=== PATIENT | male | born 1945 | race Caucasian/White ===

== ENCOUNTER 2018-08-13 22:03 | Inpatient (IN) ==
--- NOTE | 2018-08-13 22:28 | ED ---
HPI General Chief Complaint: Chest Pain Stated Complaint: Rt Jaw/Shoulder Pain x2Hr Time Seen by Provider: 08/13/18 22:20 Source: patient Mode of arrival: ambulatory Limitations: no limitations History of Present Illness HPI narrative: 73-year-old male presents to the emergency department for 2 hours of retrosternal chest pain radiating into the neck and jaw with history of CAD stent placement x1 several years ago in [place] hypertension previous TIA and CVA as well as ongoing tobaccoism denies COPD/emphysema presents with 5/ 10 chest pain no sweats no nausea vomiting some shortness of breath no pleuritic pain. No reported long distance travel protracted bedrest or surgical procedure. Patient is followed to the ID. Patient does not take any medications prior to arrival to the emergency department. Patient does take daily dose aspirin 325 mg each morning. Patient is unable to identify exacerbating or alleviating factors. MD complaint: Reports chest pain Onset (ago): hour(s) (2) Time: 20:00 Duration: constant Onset: during rest Pain location: Reports substernal Severity: moderate Severity scale (1-10): 5 Quality: Reports tightness and aching Pain radiation: Reports neck and jaw/teeth Relieving factors: nothing (hasn't taken anything) Exacerbating factors: exertion Context: Reports recent travel; Denies recent illness, recent surgery, recent immobilization, trauma/injury, new medications and history of DVT/PE Associated symptoms: Reports dyspnea and cough (chronic tobacco use); Denies nausea, vomiting, diaphoresis, sense of impending doom, syncope, palpitations, fever and leg swelling Treatments prior to arrival chest pain: Reports none Related Data Home Medications Medication Instructions Recorded Confirmed Unable to Obtain Home Meds 08/13/18 08/13/18 Allergies Allergy/AdvReac Type Severity Reaction Status Date / Time steroids Allergy Tingling Uncoded 08/13/18 22:18 Review of Systems ROS: all other systems reviewed are negative PMFSH History History Provided By: Patient Medical History Medical History Heart attack (Acute) Skin cancer (Acute) Stroke (Acute) TIA (transient ischemic attack) (Acute) Surgical History Surgical History H/O hernia repair (Acute) History of coronary artery stent placement (Acute) S/P skin cancer resection (Acute) Social History Social History Substance History: No History of Abuse Second Hand Smoke Exposure: Yes Smoking Status: Current every day smoker Tobacco Type: Cigarettes How Often Do You Have a Drink Containing Alcohol: 4 or more times a week Recent Travel in [place] within the Last 8 Weeks: No Recent Out of Country Travel within the Last 8 Weeks: No Exam Narrative Exam Narrative: GENERAL: Well-nourished, well-developed patient. No acute distress no respiratory distress GCS 15 SKIN: Focused skin assessment warm/dry. HEAD: Normocephalic. EYES: No scleral icterus. No injection or drainage. NECK: Supple, trachea midline. No JVD or lymphadenopathy. CARDIOVASCULAR: Regular rate and rhythm without murmurs, gallops, or rubs. RESPIRATORY: Breath sounds equal bilaterally with end expiratory wheezing and rhonchi. No accessory muscle use. GASTROINTESTINAL: Abdomen soft, non-tender, nondistended. MUSCULOSKELETAL: No cyanosis, or edema. BACK: Nontender without obvious deformity. No CVA tenderness. Course Initial Documented Vital Signs Temperature 97.7 F 08/13/18 22:10 Pulse Rate 77 08/13/18 22:10 Respiratory Rate 18 08/13/18 22:10 Blood Pressure 159/80 H 08/13/18 22:10 Pulse Oximetry 95 08/13/18 22:10 Last Documented Vital Signs Temperature 97.4 F L 08/14/18 01:13 Pulse Rate 60 08/14/18 01:13 Respiratory Rate 20 08/14/18 01:13 Blood Pressure 109/58 L 08/14/18 01:13 Pulse Oximetry 97 08/14/18 01:13 Medical Decision Making [facility] Narrative Medical decision making narrative: 73-year-old male presents to the emergency department for 2 hours of retrosternal chest pain radiating into the neck and jaw with history of CAD stent placement x1 several years ago in [place] hypertension previous TIA and CVA as well as ongoing tobaccoism denies COPD/ emphysema presents with 5/10 chest pain no sweats no nausea vomiting some shortness of breath no pleuritic pain with posterior wheezing and rhonchi to auscultation no abdominal pain or palpable pulsatile mass and bilateral upper extremities and lower extremities palpable radial and dorsalis pedis pulses. Patient placed on monitoring and evaluation advisor with continuous pulse oximetry IV access obtained specimens collected and sent for resulting EKG performed. EKG normal sinus rhythm rate [address] elevation injury pattern or ectopy noted nonspecific mild ST depression inferiorly right bundle branch block noted. Aspirin 162 mg ordered x1 dose patient states he takes aspirin 325 mg each morning and takes another blood thinning agent but does not know the name of this medication. Patient states he is allergic to all steroids. Patient states that he has been on nebulized treatments in the past but he does not like them. Patient has very congested cough that is productive of clear sputum. Patient does not report any yellow-green or rest colored sputum or hemoptysis. No report of nausea vomiting abdominal pain or flank pain. No injury or fall. EKG sinus rhythm no acute ST elevation right bundle branch block is noted no pleuritic chest pain Troponin I is less than 0.02; CK and BNP not elevated; chest pain decreased from 5/10 in intensity to 3/10 in intensity after 2 sublingual nitroglycerin refused a third 7 nitroglycerin and subsequent pain went to 0/10 in intensity. Chest x-ray shows atelectasis versus consolidation to the left base; CBC with automated differential within normal limits; afebrile; patient with improved symptom relief after DuoNeb updraft. At 11:50 PM patient's case discussed with on-call medicine physician for observation admission for chest pain center per protocol review patient's risk factor profile of previous CAD with cardiac stent hypertension dyslipidemia and ongoing tobaccoism. Also treat patient for bronchitis with plate atelectasis versus consolidation right base no pleuritic chest pain room air O2 saturation 98% with x-ray wheezing and rhonchi suspicious for COPD with exacerbation we will give one-time dose of antibiotic. Medical Screen Exam Complete: Yes Emergency Medical Condition: Yes Differential Diagnosis Differential Diagnosis: Chest pain atypical chest pain, ACS, OR, PE, pneumonia, COPD, esophageal spasm, peptic ulcer disease, gastritis pancreatitis biliary colic, abdominal aortic aneurysm, dissection Medical Records no prior visits Lab Data Result diagrams: 08/13/18 22:28 08/13/18 22:28 Lab Results 08/13/18 08/13/18 08/13/18 Range/Units 22:28 22:28 22:28 CBC w Diff Auto diff final WBC 8.1 (4.0-11.0) th/mm3 RBC 5.32 (4.50-5.90) mil/mm3 Hgb 16.2 (13.0-17.0) gm/dL Hct 50.1 (39.0-51.0) % MCV 94.1 (80.0-100.0) fL MCH 30.5 (27.0-34.0) pg MCHC 32.4 (32.0-36.0) % RDW 13.6 (11.6-17.2) % Plt Count 322 (150-450) th/mm3 MPV 7.7 (7.0-11.0) fL Neut % (Auto) 67.0 (16.0-70.0) % Lymph % (Auto) 23.0 (9.0-44.0) % Mason % (Auto) 6.3 (0.0-8.0) % Eos % (Auto) 2.6 (0.0-4.0) % Baso % (Auto) 1.1 (0.0-2.0) % Neut # (Auto) 5.4 (1.8-7.7) th/mm3 Lymph # (Auto) 1.9 (1.0-4.8) th/mm3 Mason # (Auto) 0.5 (0.0-0.9) th/mm3 Eos # (Auto) 0.2 (0.0-0.4) th/mm3 Baso # (Auto) 0.1 (0.0-0.2) th/mm3 WBC Differential . Differential Comment . PT 10.6 (9.8-11.6) sec INR 1.0 Ratio APTT 29.1 (23.4-31.7) sec Sodium (136-145) meq/L Potassium (3.5-5.1) meq/L Chloride (98-107) meq/L Carbon Dioxide (21.0-32.0) meq/L Anion Gap (5-15) meq/L BUN (7-18) mg/dL Creatinine (0.60-1.30) mg/dL Estimated GFR (>89) mL/min Random Glucose (74-106) mg/dL Calcium (8.5-10.1) mg/dL Magnesium (1.5-2.5) mg/dL Total Bilirubin (0.2-1.0) mg/dL AST (15-37) U/L ALT (12-78) U/L Alkaline Phosphatase (45-117) U/L Total Creatine Kinase (39-308) U/L CK-MB (CK-2) (0.5-3.6) ng/mL Troponin I (0.02-0.05) ng/mL B-Natriuretic Peptide 34 (0-100) pg/mL Total Protein (6.4-8.2) g/dL Albumin (3.4-5.0) g/dL 08/13/18 Range/Units 22:28 CBC w Diff WBC (4.0-11.0) th/mm3 RBC (4.50-5.90) mil/mm3 Hgb (13.0-17.0) gm/dL Hct (39.0-51.0) % MCV (80.0-100.0) fL MCH (27.0-34.0) pg MCHC (32.0-36.0) % RDW (11.6-17.2) % Plt Count (150-450) th/mm3 MPV (7.0-11.0) fL Neut % (Auto) (16.0-70.0) % Lymph % (Auto) (9.0-44.0) % Mason % (Auto) (0.0-8.0) % Eos % (Auto) (0.0-4.0) % Baso % (Auto) (0.0-2.0) % Neut # (Auto) (1.8-7.7) th/mm3 Lymph # (Auto) (1.0-4.8) th/mm3 Mason # (Auto) (0.0-0.9) th/mm3 Eos # (Auto) (0.0-0.4) th/mm3 Baso # (Auto) (0.0-0.2) th/mm3 WBC Differential Differential Comment PT (9.8-11.6) sec INR Ratio APTT (23.4-31.7) sec Sodium 137 (136-145) meq/L Potassium 4.0 (3.5-5.1) meq/L Chloride 101 (98-107) meq/L Carbon Dioxide 33.5 H (21.0-32.0) meq/L Anion Gap 3 L (5-15) meq/L BUN 9 (7-18) mg/dL Creatinine 1.10 (0.60-1.30) mg/dL Estimated GFR 66 L (>89) mL/min Random Glucose 107 H (74-106) mg/dL Calcium 8.8 (8.5-10.1) mg/dL Magnesium 2.2 (1.5-2.5) mg/dL Total Bilirubin 0.3 (0.2-1.0) mg/dL AST 25 (15-37) U/L ALT 24 (12-78) U/L Alkaline Phosphatase 141 H (45-117) U/L Total Creatine Kinase 102 (39-308) U/L CK-MB (CK-2) 1.5 (0.5-3.6) ng/mL Troponin I Less than 0.02 L (0.02-0.05) ng/mL B-Natriuretic Peptide (0-100) pg/mL Total Protein 7.7 (6.4-8.2) g/dL Albumin 3.6 (3.4-5.0) g/dL Imaging Data Radiologist's impression: Chest X-Ray 08/13/18 22:21 CONCLUSION: Increased density at the right base likely related to consolidation or atelectasis. ECG Data EKG Prior to Arrival: No Attestation: I personally reviewed and interpreted this ECG as follows: (EKG: Normal sinus rhythm rate 75 right bundle branch block no acute ST elevation injury pattern mild ST depression inferiorly; no comparison EKGs were available for review) Prior ECG tracings: not available for review Discharge Plan Discharge Disposition Patient Disposition: ED Admit(ED Internal Use Only) Discharge Condition Condition: Stable Discharge Order Discharge Orders: ED Use Only Admit Order (Routine); Ordered 08/13/18 Ordered By: Orin Magana Discharge Details Diagnosis: Chest pain, Bronchitis Physicians Team ED Provider: Orin Magana Primary Care Provider: [facility] Attending Provider: Maggie Bender Status ED Status: Left Department Discharge Information Discharge Date/Time: 08/14/18 00:54
[2018-08-13 22:34] LABS: Baso # (Auto) 0.1 th/mm3 (0.0-0.2); Baso % (Auto) 1.1 % (0.0-2.0); Eos # (Auto) 0.2 th/mm3 (0.0-0.4); Eos % (Auto) 2.6 % (0.0-4.0); Hematocrit 50.1 % (39.0-51.0); Hemoglobin 16.2 gm/dL (13.0-17.0); Lymph # (Auto) 1.9 th/mm3 (1.0-4.8); Mean Corpuscular HGB Conc 32.4 % (32.0-36.0); Mean Corpuscular Hemoglobin 30.5 pg (27.0-34.0); Mean Corpuscular Volume 94.1 fL (80.0-100.0); Mean Platelet Volume 7.7 fL (7.0-11.0); Mono # (Auto) 0.5 th/mm3 (0.0-0.9); Mono % (Auto) 6.3 % (0.0-8.0); Neut # (Auto) 5.4 th/mm3 (1.8-7.7); Platelet Count 322 th/mm3 (150-450); Red Blood Count 5.32 mil/mm3 (4.50-5.90); Red Cell Distribution Width 13.6 % (11.6-17.2); White Blood Count 8.1 th/mm3 (4.0-11.0)
[2018-08-13] MEDS: Sod Chloride 0.9% Inj 1,000 ML IV.CONT SCH (22:40)
--- NOTE | 2018-08-13 22:43 | XR ---
EXAM DATE: 08/13/2018 10:37 PM EST AGE/SEX: 73 years / Male INDICATIONS: Patient complains of right sided chest pain radiating into right shoulder. CLINICAL DATA: This is the patient's initial encounter. Patient reports that signs and symptoms have been present for 1 day and indicates a pain score of 7/10. MEDICAL/SURGICAL HISTORY: None. None. COMPARISON: No prior exams available for comparison. FINDINGS: The heart size is normal. The lungs appear hyperinflated. There is increased density seen at the righ t base. The left lung appears grossly clear. The costophrenic angles are clear. CONCLUSION: Increased density at the right base likely related to consolidation or atelectasis. Electronically signed by: Cedric Staples MD Board Certified Radiologist 08/13/2018 10:41 PM EST
[2018-08-13 22:51] LABS: Chloride 101 meq/L (98-107); Sodium 137 meq/L (136-145)
[2018-08-13 22:54] LABS: Albumin 3.6 g/dL (3.4-5.0); Calcium 8.8 mg/dL (8.5-10.1)
[2018-08-13 22:55] LABS: Anion Gap 3 meq/L (5-15); Blood Urea Nitrogen 9 mg/dL (7-18); Carbon Dioxide 33.5 meq/L (21.0-32.0); Glucose,Random 107 mg/dL (74-106); Magnesium 2.2 mg/dL (1.5-2.5)
[2018-08-13 22:56] LABS: Activated Partial Thrombo Time 29.1 sec (23.4-31.7); Prothrombin Time 10.6 sec (9.8-11.6)
[2018-08-13] MEDS ORDERED: Pantoprazole Inj 40 MG Vial IV.PUSH ONE (22:57)
[2018-08-13 22:58] LABS: Alanine Aminotransferase 24 U/L (12-78); Aspartate Aminotransferase 25 U/L (15-37); Glomerular Filtration Rate 66 mL/min (>89)
[2018-08-13 22:59] LABS: Total Protein 7.7 g/dL (6.4-8.2)
[2018-08-13 23:00] LABS: Alkaline Phosphatase 141 U/L (45-117); Creatine Kinase 102 U/L (39-308)
[2018-08-13 23:13] LABS: Creatine Kinase MB 1.5 ng/mL (0.5-3.6)
[2018-08-14 02:18] LABS: Troponin I 0.23 ng/mL (0.02-0.05)
[2018-08-14 06:02] LABS: Troponin I 0.72 ng/mL (0.02-0.05)
[2018-08-14] MEDS ORDERED: Heparin Drip 25,000 UNIT/250 ML BAG IV.CONT PRN (06:24)
[2018-08-14] MEDS ORDERED: Heparin 10,000 UNITS/10 ML Vial (for IV use) IV.PUSH STA (06:24)
--- NOTE | 2018-08-14 06:59 | ECG ---
Date Performed: 08/13/2018 Time Performed: 22:22:00 PTAGE: 73 years EKG: Sinus rhythm RIGHT BUNDLE BRANCH BLOCK Nonspecific ST and T wave abnormalities ABNORMAL ECG NO PREVIOUS TRACING DOCTOR: Gómez Owen Interpretating Date/Time 08/14/2018 06:58:23
--- NOTE | 2018-08-14 06:59 | ECG ---
Date Performed: 08/14/2018 Time Performed: 01:28:02 PTAGE: 73 years EKG: Baseline artifact present SINUS BRADYCARDIA RIGHT BUNDLE BRANCH BLOCK Nonspecific ST and T wave abnormalities ABNORMAL ECG No significant change from prior electrocardiogram. PREVIOUS TRACING : 08/13/2018 22.22 DOCTOR: Gómez Owen Interpretating Date/Time 08/14/2018 06:57:50
--- NOTE | 2018-08-14 07:03 | ECG ---
Date Performed: 08/14/2018 Time Performed: 04:21:00 PTAGE: 73 years EKG: Sinus rhythm RIGHT BUNDLE BRANCH BLOCK ABNORMAL ECG Compared to prior electrocardiogram, ST T-wave changes have r esolved. PREVIOUS TRACING : 08/14/2018 01.28 DOCTOR: Gómez Owen Interpretating Date/Time 08/14/2018 07:01:58
[2018-08-14 07:36] LABS: Activated Partial Thrombo Time 29.1 sec (23.4-31.7); INR 1.1 Ratio; Prothrombin Time 10.7 sec (9.8-11.6)
[2018-08-14] MEDS ORDERED: LORazepam 1 MG Tablet PO PRN (07:47)
[2018-08-14] MEDS ORDERED: Haloperidol Inj 5 MG/ML Ampul IV.PUSH PRN (07:47)
--- NOTE | 2018-08-14 07:49 | P.HPIM ---
History of Present Illness Primary Care Physician: [facility] Chief Complaint: Right arm and jaw pain History of Present Illness: 73-year-old male with known history of hypertension, history of myocardial infarction, coronary artery disease, TIA who presented to the hospital for acute onset of right jaw and right arm pain. Patient states that he was in his normal state of health while he was at a bar last night having a beer when he got a sudden onset of pain in his jaw and right arm at approximately 8 PM last night. Patient states that it hurt real bad but he could not quantify the pain. The pain was persistent until he was brought to the hospital. His son brought him to the hospital for evaluation. Patient was given aspirin, nitroglycerin, Protonix in emergency department with resolution of his pain. Patient denied any nausea, vomiting, shortness of breath, dyspnea, chest pain. Patient had workup done in emergency department and was made to the hospital for evaluation chest pain. During evaluation patient had acute troponin elevation without any ST elevations. Cardiology has been consulted. At the time of evaluating patient this morning he is asymptomatic. Patient does have history of coronary disease and has undergone cardiac catheterization with 1 stent placement. Review of Systems Review of Systems: all other systems reviewed are negative Cardiovascular: Reports radiating jaw, neck or arm pain PMFSH Medical History Medical History Alcohol use (Acute) Heart attack (Acute) Skin cancer (Acute) Stroke (Acute) TIA (transient ischemic attack) (Acute) Tobacco use (Acute) Surgical History Surgical History H/O hernia repair (Acute) History of coronary artery stent placement (Acute) S/P skin cancer resection (Acute) Family History Family History Mother Family history of heart disease Social History Social History Substance History: No History of Abuse Second Hand Smoke Exposure: Yes Smoking Status: Current every day smoker Tobacco Type: Cigarettes Packs Per Day: 1 Cigarettes Per Day: 20.0 Years Smoked: 54 Pack-Years: 54.00 How Often Do You Have a Drink Containing Alcohol: 4 or more times a week Recent Travel in [facility] within the Last 8 Weeks: No Recent Out of Country Travel within the Last 8 Weeks: No Immunization History Tetanus Immunization: >5 Years Medications and Allergies Allergies Allergy/AdvReac Type Severity Reaction Status Date / Time steroids Allergy Tingling Uncoded 08/13/18 22:18 Home Medications Medication Instructions Recorded Confirmed Type Unable to Obtain Home Meds 08/13/18 08/13/18 History Active Medications: Active Medications Aspirin (Aspirin) 325 mg PO DAILY [facility] Heparin Sodium (Porcine) (Heparin Inj) 2,500 units IV.PUSH UNSCH PRN PRN Reason: aPTT 25-39 Heparin Sodium (Porcine) (Heparin Inj) 5,000 units IV.PUSH UNSCH PRN PRN Reason: aPTT < 25 Sodium Chloride (Ns Inj) 1,000 mls @ 84 mls/hr IV.CONT .[id number] [facility] Last Infusion: 08/14/18 00:54 Dose: 84 mls/hr Heparin Sodium/Dextrose (Heparin/D5w 25,000 U/250 Ml) 25,000 unit in 250 mls @ 10 mls/hr IV.CONT TITRATE PRN; Protocol PRN Reason: Per Protocol Nitroglycerin (Nitrostat Sl) 0.4 mg SL Q5M PRN PRN Reason: CHEST PAIN Sodium Chloride (Ns Flush) 2 ml IV.FLUSH UNSCH PRN PRN Reason: FLUSH AFTER USING IV ACCESS Sodium Chloride (Ns Flush) 2 ml IV.FLUSH BID [facility] Physical Exam Vital signs: Vital Signs 08/13/18 22:10 08/13/18 22:43 08/13/18 23:17 Temperature 97.7 F Pulse Rate 77 75 71 Respiratory Rate 18 18 22 Blood Pressure 159/80 H 144/83 H Pulse Oximetry 95 98 08/14/18 00:35 08/14/18 01:13 Temperature 97.4 F L Pulse Rate 72 60 Respiratory Rate 18 20 Blood Pressure 152/74 H 109/58 L Pulse Oximetry 95 97 Intake & Output 08/13/18 08/14/18 08/14/18 18:59 06:59 18:59 Intake Total 278 / 278 Balance 278 / 278 Weight 81.7 kg Intake: IV 278 / 278 NS Inj 1,000 ML @ 84 mls/hr IV. 178 / 178 CONT .[id number] [facility] Rx#: [id number] Rocephin Inj 1,000 MG In NS Inj 100 / 100 100 ML @ 200 mls/hr IV.SIG ONCE ONE Rx#:[id number] Oral 0 / 0 Other 0 / 0 Other: Weight On Admission 81.7 kg Narrative: GENERAL: Well-developed, well-nourished, in no acute distress. alert and orientated HEENT: Head is normocephalic without any lesions or masses noted. Facial features are symmetric. Eyes: Pupils equal round reactive to light. Extraocular muscles are intact. Conjunctivae were clear. Oropharyngeal: Pharynx without any erythema edema. Tongue is midline without deviation. Buccal mucosa is moist without any masses or lesions. Patient does have a lesion noted on left ear NECK: Supple without any masses. Trachea midline no deviation. No JVD, no bruits are appreciated CARDIAC: Regular rhythm, regular rate. S1/S2 are heard. No murmurs gallops or rubs. LUNGS: Clear to auscultation bilaterally. No wheeze, rhonchi or rales. No use of accessory muscles on inspiration or expiration. ABDOMEN: Soft, nontender. Nondistended. Bowel sounds heard in all 4 quadrants. No organomegaly or masses. Negative rebound, negative guarding EXTREMITIES: No edema, pulses are equal bilaterally. No cyanosis or clubbing NEUROLOGY: Mood and affect appear appropriate. Cranial nerves II through XII grossly intact. Muscle strength 5/5 in upper and lower extremities bilaterally. Deep tendon reflexes are 2+ in upper and lower extremities bilaterally. Results Labs CBC & Chem 7: 08/13/18 22:28 08/13/18 22:28 Imaging Impressions Chest X-Ray 08/13/18 22:21 CONCLUSION: Increased density at the right base likely related to consolidation or atelectasis. Caprini VTE Risk Assessment Caprini VTE Risk Assessment: Moderate/High Risk (score >= 2) Caprini Risk Assessment Model: Point Value = 1 Point Value = 2 Point Value = 3 Point Value = 5 Age 41-60 Minor surgery BMI > 25 kg/m2 Swollen legs Varicose veins or History of unexplained or recurrent spontaneous Oral contraceptives or hormone replacement Sepsis (< 1 month) Serious lung disease, including pneumonia (< 1 month) Abnormal pulmonary function Acute myocardial infarction Congestive heart failure (< 1 month) History of inflammatory bowel disease Medical patient at bed rest Age 61-74 Arthroscopic surgery Major open surgery (> 45 min) Laparoscopic surgery (> 45 min) Malignancy Confined to bed (> 72 hours) Immobilizing plaster cast Central venous access Age >= 75 History of VTE Family history of VTE Factor V Leiden Prothrombin [id number] Lupus anticoagulant Anticardiolipin antibodies Elevated serum homocysteine Heparin-induced thrombocytopenia Other congenital or acquired thrombophilia Stroke (< 1 month) Elective arthroplasty Hip, pelvis, or leg fracture Acute spinal cord injury (< 1 month) Prophylaxis Regimen: Total Risk Factor Score Risk Level Prophylaxis Regimen 0-1 Low Early ambulation 2 Moderate Order ONE of the following: *Sequential Compression Device (SCD) *Heparin 5000 units SQ BID 3-4 Higher Order ONE of the following medications: *Heparin 5000 units SQ TID *Enoxaparin/Lovenox 40 mg SQ daily (WT < 150 kg, CrCl > 30 mL/min) *Enoxaparin/Lovenox 30 mg SQ daily (WT < 150 kg, CrCl > 10-29 mL/min) *Enoxaparin/Lovenox 30 mg SQ BID (WT < 150 kg, CrCl > 30 mL/min) AND/OR *Sequential Compression Device (SCD) 5 or more Highest Order ONE of the following medications: *Heparin 5000 units SQ TID (Preferred with Epidurals) *Enoxaparin/Lovenox 40 mg SQ daily (WT < 150 kg, CrCl > 30 mL/min) *Enoxaparin/Lovenox 30 mg SQ daily (WT < 150 kg, CrCl > 10-29 mL/min) *Enoxaparin/Lovenox 30 mg SQ BID (WT < 150 kg, CrCl > 30 mL/min) AND *Sequential Compression Device (SCD) Assessment and Plan Plan Non-ST elevated myocardial infarction Patient with increased risk factors include age, male, hypertension, coronary artery disease, history of myocardial infarction, tobacco use, family history of heart disease Serial cardiac enzymes were performed with continued elevation of troponin from 0.02>0.72 Serial EKGs were performed which shows right bundle branch block. Nonspecific ST-T changes which have improved Cardiology consulted for further recommendations Patient started on heparin IV for cardioprotection Continue aspirin Start Nitropaste Patient currently on metoprolol, however blood pressure and heart rate too low to initiate at this time Obtain lipid panel Start atorvastatin Hypertension, coronary artery disease Patient states that he is on metoprolol for blood pressure control, unknown dosage Daily alcohol use Start CIWA protocol Start thiamine and folic acid Monitor for alcohol withdrawal DVT prevention Heparin Discussed Condition With: Patient, nursing staff, Dr. Montes H&P: Quality VTE Deep Vein Thrombosis/Pulmonary Embolism Present on Admission: No
[2018-08-14 08:33] LABS: Creatine Kinase 132 U/L (39-308)
[2018-08-14 08:45] LABS: Creatine Kinase MB 13.4 ng/mL (0.5-3.6)
[2018-08-14 08:56] LABS: Troponin I 1.42 ng/mL (0.02-0.05)
[2018-08-14] MEDS: Folic Acid 1 MG Tablet PO SCH (09:17)
[2018-08-14] MEDS: Aspirin 325 MG Tablet PO SCH (09:17)
[2018-08-14 10:50] LABS: Cholesterol 140 mg/dL (120-200); Triglycerides 65 mg/dL (42-150)
[2018-08-14 10:53] LABS: Chol/HDL Ratio 3.01 Ratio; HDL Cholesterol 46.5 mg/dL (40.0-60.0); LDL Cholesterol,Calculated 81 mg/dL (0-99)
[2018-08-14] MEDS: Sod Chloride 0.9% Inj 1,000 ML IV.CONT SCH (11:25)
[2018-08-14] MEDS ORDERED: Heparin 10,000 UNITS/10 ML Vial (for IV use) IV.PUSH PRN ×2 (12:25→12:31)
--- NOTE | 2018-08-14 12:51 | ECG ---
Date Performed: 08/14/2018 Time Performed: 10:46:03 PTAGE: 73 years EKG: SINUS BRADYCARDIA RIGHT BUNDLE BRANCH BLOCK ABNORMAL ECG No significant change from prior e lectrocardiogram. PREVIOUS TRACING : 08/14/2018 04.21 DOCTOR: Gómez Owen Interpretating Date/Time 08/14/2018 12:51:35
[2018-08-14] MEDS ORDERED: Heparin/NS PF Inj 1,000 ML ONE (13:30)
[2018-08-14] MEDS ORDERED: fentaNYL Citrate Inj 100 MCG/2 ML Ampul ONE (13:33)
[2018-08-14] MEDS ORDERED: Heparin 10,000 UNITS/10 ML Vial (for IV use) ONE (13:53)
--- NOTE | 2018-08-14 14:04 | MB ---
cc: Job Carolina MD DATE: 08/14/2018 HISTORY OF PRESENT ILLNESS: This patient is a 73-year-old gentleman with a history of myocardial infarction, coronary artery disease, status post PCI, who presents with chest pain lasting for approximately 2 hours, currently pain-free, elevated troponin. He was initially at [place] and was transferred to [facility] for left heart catheterization. Otherwise, denies any fever, chills, cough, GI or bleeding, PND, orthopnea. PAST MEDICAL HISTORY: Alcohol use, skin cancer, CVA x2, TIA, hernia repair, skin cancer resection. ALLERGIES: STEROIDS. SOCIAL HISTORY: Smokes every day. Drinks alcohol 4 or more times a week. MEDICATIONS IN THE HOSPITAL: 1. Aspirin 325 daily. 2. Lipitor 20 mg daily. 3. Folic acid 1 mg daily. 4. Heparin drip. 5. Half-inch nitro paste every 6 hours. 6. Thiamine 100 mg daily. PHYSICAL EXAMINATION: VITAL SIGNS: Blood pressure 138/75, pulse 63, respiratory rate 20, pulse 57, temperature 98.4, heart rate ranging between 57 and 77. GENERAL: He is alert and oriented x3, in no acute distress. NECK: Supple. No JVD. No bruit. CARDIOVASCULAR: S1, S2. No murmurs, rubs or gallops. LUNGS: Clear to auscultation bilaterally. ABDOMEN: Soft, nontender, nondistended with positive bowel sounds. EXTREMITIES: No lower extremity edema. LABORATORY DATA: EKG shows normal sinus rhythm at 73 beats per minute, right bundle-branch block, nonspecific ST-T wave changes. Chest x-ray: Increased density at the right base, likely related to consolidation or atelectasis. EKG from this morning, normal sinus rhythm at 58 beats per minute, nonspecific ST-T wave changes. LABORATORY DATA: White count 8.1, hemoglobin 16.8, hematocrit 50.1, platelet count 322,000. INR is 1.1. Sodium 137, potassium 4, chloride 100, bicarbonate 33.5, BUN 9, creatinine 1.1. Troponins less than 0.02, followed by 0.23 0.72, 1.42, and 3.81. LFTs normal. LDL 81. DIAGNOSES: 1. Ahq-AM-eimfougoc myocardial infarction. 2. Coronary artery disease. 3. Tobacco abuse. 4. History of cerebrovascular accident. DISCUSSION: I have advised transfer to [facility] for urgent left heart catheterization. The patient agrees to left heart catheterization. I have strongly advised him to stop smoking. Otherwise, recommended to continue aspirin, heparin, Lipitor. We will treat with beta torrey and ISIAH inhibitor as he clinically tolerates it. MD KEITH Bland/sb , 01:11 PM , 01:20 PM
[2018-08-14] MEDS ORDERED: Tirofiban Inj 12,500 MCG/250 ML PLAST..BAG ONE (14:12)
[2018-08-14] MEDS ORDERED: TIROFIBAN BOLUS IV.SIG ONE (14:23)
[2018-08-14] MEDS ORDERED: Misc Info for Pharmacy OTHER STA (14:23)
--- NOTE | 2018-08-14 14:28 | CATHPROC ---
[facility] HIS Report Study Information Study Number Admission Scheduled Start Study Start [id number] Aug 14 2018 10:36AM 08/14/2018 Aug 14 2018 1:03PM [facility] Cardiac Catheterization Admit Source Facility Department Emergency department [facility] - [employer] Specialist Physician and Clinical Staff Initial Job [employer] Quality Control Technician Zenobia Redman BSN Recorder Micaela Heck,RT(R) (BS) Scrub Shirlene Brice Procedures Performed Procedure Location (Site) Vessel Name Coronary Angiograms LCA Left Coronary Coronary Angiograms RCA Right Coronary L Heart Cath LV Gram-hand inj. LV LV Ventricle PTCA OM1 Prox CIRC PTCA ADD ON'S Wire insertion Fem Art (right) Femoral Art Equipment Time Corncob Pipes Assembler Description Size Mfg Part Number Used/Scraped [id number] 14:03 [employer] INTECC WIRE, ASAHI PROWATER 180CM 180CM Used *[id number] TRANSDUCER, TRUWAVE [id number] 13:06 RIVERA ROPER * Used W/STOCKCOCK *[id number] 538-420 *[id number] [id number] *[id number] *[id number] 13:06 [employer] BLANKET,WARM AIR CCL * Used *[id number] 13:06 [employer] PACK, CCL CUSTOM * Used *[id number] 13:06 [employer] PACER PEN, SKIN DUAL W/ RULER * Used *[id number] BALLOON, 2.5 X 12MM NC [id number] 14:06 [employer] 12MM Used EUPHORA *[id number] 14:03 [employer] MEDICAL 30 SHADY INDEFLATOR Used *[id number] 14:03 [employer] MEDICAL SHEATH, FR6.5 PRELUDE 11CM FR 6.5 038ACT Used *[id number] 13:06 [employer] MEDICAL WIRE, 3MMJ .035 180CM 180CM Used *[id number] 13:06 NAMIC MANIFOLD, 4 PORT * Used *[id number] 13:06 [employer] OMNIPAQUE, 350 MG, 150ML 150ML [id number] Used [id number] 13:06 [employer] MEDICAL SHEATH, FR4 TERUMO (10CM) FR 4 Used *[id number] History: Current Medications Medication Dosage/Unit Route Frequency Last Date/Time Taken ASA LIPITOR History: Allergies Allergy Reaction steroids Tingling History: Risk Factors Family History of Hypertension Dyslipidemia Previous SC Previous Heart Failure Premature CAD Yes Yes No Yes No Prior Valve Prior PCI Prior CABG Surgery No Yes No Cerebrovascular Peripheral Artery Chronic Lung On Dialysis Diabetes Disease Disease Disease No Yes No Yes No History: Symptoms/Diagnosis Selection Items Chest pain History: Stress Tests Stress or Imaging Studies Performed No History: Other Current Smoker Method Yes Cigarettes Labs Hgb (g/dl) Hct (%) WBC (l/cumm) Platelets (thousands) 11.60-17.00 35.00-51.00 4.00-11.00 150.00-450.00 16.2 50.1 8.1 322 Glucose (mg/dl) BUN (mg/dl) Creatinine (mg/dl) BUN:Creatinine (1:x) 74.00-106.00 7.00-18.00 0.50-1.30 10.00-20.00 107 9 1.1 8.2 Na (meq/l) K (meq/l) 136.00-145.00 3.50-5.10 137 4 INR (PTT:PT) 0.90-1.10 1.1 Troponin I (ng/ml) Troponin T (ng/ml) CPK-MB (ng/ML) 0.02-0.05 0.40-2.10 0.50-3.60 0.02 1.42 Not Drawn Medication Medication Total Dose (Bolus/Oral) Medication Total Dosage/Unit 1% XYLOCAINE 20 mL AGGRASTAT BOLUS 40.7 mL FENTANYL 50 mcg HEPARIN 5700 units PLAVIX 600 mg VERSED 2 mg Medications (Bolus/Oral) Medication Time Given Dosage/Unit Administered By Reason VERSED 08/14/2018 1:43:55 PM 1 mg Zenobia Redman 1 mg VERSED given in lab by Zenobia Redman BSN via Peripheral IV. 1% XYLOCAINE 08/14/2018 1:44:45 PM 20 mL Job Carolina 20 mL 1% XYLOCAINE given in lab by Job Carolina in Right Groin via Subcutaneous. FENTANYL 08/14/2018 1:44:59 PM 25 mcg Zenoiba Redman 25 mcg FENTANYL given in lab by Zenobia Redman BSN via Peripheral IV. HEPARIN 08/14/2018 2:00:49 PM 5700 units Zenobia Redman 5700 units HEPARIN given in lab by Zenobia Redman BSN via Peripheral IV. VERSED 08/14/2018 2:13:26 PM 1 mg Zenobia Redman 1 mg VERSED given in lab by Zenobia Redman BSN via Peripheral IV. FENTANYL 08/14/2018 2:14:29 PM 25 mcg Zenobia Redman 25 mcg FENTANYL given in lab by Zenobia Redman BSN via Peripheral IV. AGGRASTAT BOLUS 08/14/2018 2:18:25 PM 40.7 mL Zenobia Redman 40.7 mL AGGRASTAT BOLUS given in lab by Zenobia Redman BSN via Peripheral IV. PLAVIX 08/14/2018 2:25:24 PM 600 mg Zenobia Redman 600 mg PLAVIX given in lab by Zenobia Redman BSN via Oral. Medication (Drip) Medication Time Given Dosage/Unit Concentration/Unit Diluent (ml) Solution AGGRASTAT DRIP 08/14/2018 2:21:56 PM 0.15 mcg/kg/min 12.5 mg 250 NaCl .9 0.15 mcg/kg/min AGGRASTAT DRIP given in lab by Zenobia Redman BSN via Peripheral IV. Pump/Drip Flow = 14.7 ml/hr using NaCl .9 with a concentration of 12.5 mg in 250 ml. IV Solutions 08/14/2018 1:25:31 PM 0 mL (IV) 500 NaCl .9 Patient arrived on IV Solutions via Peripheral IV. Pump/Drip Flow = 30 ml/hr using NaCl .9. Initial Case Assessment Cardiovascular HR Rhythm NIBP 62 reg 151/79 Edema Present Skin color Skin Mild Normal Warm Dry Circulatory - Right Pulses Dorsalis Pedis Femoral d 1 Scale (0,1,2,3,4,d) Circulatory - Left Pulses Dorsalis Pedis Femoral 1 Scale (0,1,2,3,4,d) Circulatory - Lower Extremities Color Lower Right Color Lower Left Normal Normal Neurological State Oriented to time-place- Alert Moves all extremities person Respiration - General Respiration Rate SpO2 (%) (B/min) 20 97 Chronological Log Time Study Chronological Log 13:25:16 Patient arrived via Bed. 13:25:17 Patient Name, D.O.B, / Armband Verified By R.N. 13:25:18 Consent signed by the physician and the patient and verified by the [employer] Specialist staff. 13:25:19 Pre-op and post- op instructions given; patient acknowledges understanding of instructions. 13:25:21 Presedation assessment performed by [employer] Specialist RN. 13:25:26 Patient Warmer Placed on the Table. 13:25:27 Parker Prominences Protected 13:25:31 A # 20 IV was noted in the Antecubital (left). Grade = 0 13:25:31 Patient arrived on IV Solutions via Peripheral IV. Pump/Drip Flow = 30 ml/hr using NaCl .9. 13:25:32 History and physical on the chart or being dictated. Assessment: Initial Case, HR=62 BPM, Rhythm=reg, MGDV=357/79 mmhg, Edema=Mild, Color=Normal, Sk in = Warm, Dry Right Pulses: Sanjiv Ped=d, Femoral=1 Left Pulses: Post Tib=d, Femoral=1 13:25:33 Lower Right Extremities: Color=Normal Lower Left Extremities: Color=Normal Neurological: State=Alert, Ox3, ESTRADA Respiration: Resp=20 B/min, SpO2=97 % 13:25:50 Patient has been NPO for More than 6Hrs. Vitals capture started with the following parameters, Patient=Adult, Interval=5 min, Initial Pr wxucea=665 mmHg, 13:32:15 Deflation Rate=5 mmHg, Cuff placed on Left Arm 13:32:56 HR=59 bpm, QGGE=920/79 mmhg, SpO2=98.0 %, Resp=20 B/min, Pain=0, Nelly=10, Cisneros=2 13:37:55 HR=63 bpm, FEJE=092/80 mmhg, SpO2=97.0 %, Resp=14 B/min, Pain=0, Nelly=10, Cisneros=2 13:39:00 Bilateral groins prepped with 2% chlorhexidine, and draped after a 3 minute waiting time. Time Out. Correct patient, correct procedure, correct physician, labs, allergies, and equipment verified with garden labourer 13:42:07 team present. Fire risk assesment completed (see hard stop sheet for coding). Time Out Conc urred by and individual staff in procedure. 13:42:20 Case Start 13:42:54 HR=59 bpm, FNES=073/79 mmhg, SpO2=98.0 %, Resp=19 B/min, Pain=0, Nelly=10, Cisneros=2 13:42:58 Reference ECG taken 13:43:55 1 mg VERSED given in lab by Zenobia Redman BSN via Peripheral IV. 13:44:35 Pressure channel 1 zeroed. 13:44:45 20 mL 1% XYLOCAINE given in lab by Job Carolina in Right Groin via Subcutaneous. 13:44:59 25 mcg FENTANYL given in lab by Zenobia Redman BSN via Peripheral IV. 13:47:22 Access site was Right Femoral Artery. 13:47:36 A SHEATH, FR4 TERUMO (10CM) FR 4 was advanced into the Fem Art (right) using the Percutaneo us technique. 13:47:57 HR=60 bpm, SXAO=941/69 mmhg, SpO2=94.0 %, Resp=17 B/min, Pain=0, Nelly=10, Cisneros=2 13:48:48 Activated Clotting Time Drawn A JR 4.0 INFINITI CATHETER FR 4 was advanced over a wire. OMNIPAQUE, 350 MG, 150ML 150ML was us ed for 13:50:01 injections. Recorded Pressure: LV, HR=61, Condition=Condition 1 13:51:00 (Left Ventricle) LV 128/7/17 13:51:09 The LV was manually injected with 8 cc's and visualized. OMNIPAQUE, 350 MG, 150ML 150ML use d. 13:51:26 ACT (Normal Range 90-180) = 134 Recorded Pressure: LV, Ao, HR=57, Condition=Condition 1 13:51:53 (Left Ventricle) LV 113/0/13, (Aorta) Ao ?/?/? 13:52:16 The RCA was injected and visualized at various angles. OMNIPAQUE, 350 MG, 150ML 150ML used . 13:52:52 HR=60 bpm, SOOU=983/65 mmhg, SpO2=93.0 %, Resp=13 B/min, Pain=0, Nelly=10, Cisneros=2 After removing the current catheter a JL 4.0 INFINITI CATHETER FR 4 was advanced over a WIRE, 3 MMJ .035 180CM 13:53:41 180CM. 13:55:50 The LCA was injected and visualized at various angles. OMNIPAQUE, 350 MG, 150ML 150ML used . 13:57:49 HR=66 bpm, RFGO=907/65 mmhg, SpO2=93.0 %, Resp=16 B/min, Pain=0, Nelly=10, Cisneros=2 13:59:29 A WIRE, 3MMJ .035 180CM 180CM was inserted via Fem Art (right). 13:59:36 Catheter was removed A SHEATH, FR6.5 PRELUDE 11CM FR 6.5 was exchanged in the Fem Art (right). This was necessary in order to 14:00:38 accomodate a larger catheter. 14:00:49 5700 units HEPARIN given in lab by Zenobia Redman BSN via Peripheral IV. A XB 4.0 GUIDE CATHETER FR 6 was advanced over a wire. OMNIPAQUE, 350 MG, 150ML 150ML was used for 14:02:48 injections. 14:02:54 HR=64 bpm, JZWY=643/71 mmhg, SpO2=95.0 %, Resp=16 B/min, Pain=0, Nelly=10, Cisneros=2 14:03:19 OMNIPAQUE, 350 MG, 150ML 150ML and 30 SHADY INDEFLATOR added. 14:04:10 A WIRE, ASAHI PROWATER 180CM 180CM was inserted via Fem Art (right). A BALLOON, 2.5 X 12MM NC EUPHORA 12MM was inserted over WIRE, ASAHI PROWATER 180CM 180CM via th e Fem 14:06:58 Art (right). 14:07:55 HR=61 bpm, GITJ=600/63 mmhg, SpO2=97.0 %, Resp=18 B/min, Pain=0, Nelly=10, Cisneros=2 A BALLOON, 2.5 X 12MM NC EUPHORA 12MM over a WIRE, ASAHI PROWATER 180CM 180CM in the OM1 Prox w as 14:08:11 inflated using a 30 SHADY INDEFLATOR at 14 shady for 15 sec. A BALLOON, 2.5 X 12MM NC EUPHORA 12MM over a WIRE, ASAHI PROWATER 180CM 180CM in the OM1 Prox w as 14:10:39 inflated using a 30 SHADY INDEFLATOR at 9 shady for 15 sec. 14:11:29 Balloon Removed 14:11:34 Catheter was removed 14:11:37 Wire removed 14:11:43 Case End (Physician broke scrub) 14:12:14 Activated Clotting Time Drawn 14:12:40 Catheter(s) removed without difficulty 14:12:51 No case complications noted. 14:12:54 HR=71 bpm, ZFCM=689/76 mmhg, Resp=18 B/min, Pain=0, Nelly=10, Cisneros=2 14:13:14 Bedside Report will be given. 14:13:18 A Left Heart Cath was performed. 14:13:26 1 mg VERSED given in lab by Zenobia Redman BSN via Peripheral IV. 14:14:29 25 mcg FENTANYL given in lab by Zenobia Redman BSN via Peripheral IV. 14:16:36 ACT (Normal Range 90-180) = 233 14:17:55 HR=66 bpm, NPPD=734/67 mmhg, SpO2=94.0 %, Resp=17 B/min, Pain=0, Nelly=10, Cisneros=2 14:18:25 40.7 mL AGGRASTAT BOLUS given in lab by Zenobia Redman BSN via Peripheral IV. 14:18:30 Called CVICU. Advised a-line needed. 0.15 mcg/kg/min AGGRASTAT DRIP given in lab by Zenobia Redman BSN via Peripheral IV. Pump /Drip Flow = 14:21:56 14.7 ml/hr using NaCl .9 with a concentration of 12.5 mg in 250 ml. 14:22:56 HR=60 bpm, SBBR=203/62 mmhg, SpO2=95.0 %, Resp=13 B/min, Pain=0, Nelly=10, Cisneros=2 14:25:24 600 mg PLAVIX given in lab by Zenobia Redman BSN via Oral. 14:26:07 Vitals capture stopped. 14:27:15 Patient moved to stretcher End Study - Contrast Media Used In Study Contrast Total Opened (mL) Total Used (mL) Total Wasted (mL) Omnipaque 350 90 90 0 End Study - Maximum Contrast Load Max Contrast Load (mL) 371.3 End Study - Radiation Exposure Fluoro Time Fluoro Dose (mGy) Cine Dose (uGym2) (minutes) 3.3 6247 1559 End Study - Patient Disposition Complications Transferred To Interventional Outcome No Critical Care Bed successful
[2018-08-14] MEDS ORDERED: Iohexol 350 MG/ML 100 ML Vial (for Cath Lab) IVCONTRAST ONE (14:54)
[2018-08-14] MEDS ORDERED: Tirofiban Inj 12,500 MCG/250 ML PLAST..BAG IV.CONT SCH (15:00)
--- NOTE | 2018-08-14 16:30 | MA ---
cc: Job Carolina MD DATE: 08/14/2018 PROCEDURE: Left heart catheterization, left ventriculography. INDICATION: Non-STEMI coronary artery disease. PROCEDURE IN DETAIL: The patient was brought to the cardiac catheterization laboratory, prepped and draped in the usual sterile fashion, 10 mL of 1% lidocaine was used for local anesthetic and 4-Martiniquais sheath was placed in right common femoral. A 4-Martiniquais JR4 and JL4 catheters were used for left and right coronary angiography and left ventriculography. FINDINGS: LV pressure is 150/6-7, EF 60%. The right coronary artery is dominant. It is very tortuous, it abruptly tapers from a 30 to about a 2.25 mm vessel in the proximal segment. I do not see any obvious focal stenosis, however. In the mid segment there is a long 60-70% stenosis. In the distal segment there is a 70% stenosis that approaches to bifurcation. Right PDA and right posterolateral artery are 2.0 mm vessels, appears to be an ostial 70% stenosis in the right [place] and the right PDA. Left main coronary has no significant disease angiographically. The left circumflex vessel has mild diffuse disease in the proximal segment up to 60% angiographically. The first obtuse marginal vessel appears to be heavily calcified and/or has been stented, it is difficult to tell angiographically. In the AP cranial view, there appears to be a 95% stenosis just proximal to the bifurcation of this obtuse marginal vessel. Also on the more lateral branch, there is another, what appears to be, 80-90% focal in-stent stenosis. The remainder of the AV groove left circumflex vessel has no significant disease angiographically. There is a trifurcation of 3 small 1 mm posterolateral arteries in the distal segment. LAD has a long 60-70% proximal stenosis. After the first diagonal artery there is 60-70% stenosis. The LAD has a proximal 70% stenosis. First diagonal artery has mild diffuse disease in the ostial proximal segment up to 20% angiographically. Second diagonal artery is ectatic proximally, mild diffuse disease, up to 20% angiographically. DISCUSSION: Appears to be in 95% in-stent stenosis also just proximal to the stent in the proximal obtuse marginal vessel, followed by a focal 90% in-stent stenosis in the more lateral branch of the marginal vessel. The patient clearly has moderately to severe 3-vessel coronary artery disease. At this point in time, we will attempt POBA of the OM sequential lesions as this appears to be his culprit and he appears to be frail with multiple strokes in the past and long smoking history and probable COPD and poor lung function and may not be a good candidate for CABG. Therefore, 6-Martiniquais sheath exchanged for a 4-Martiniquais sheath. Initial ACT was 134, an additional 7 kg of heparin was given. ACT 234, 6-Martiniquais and a 0.014 Prowater guidewire was placed into the obtuse marginal vessel and then directed to the more lateral branch of the obtuse marginal vessel. The proximal in-stent stenosis segment was dilated with a 2.4 balloon at 14 atmospheres for 25 seconds. Stenosis went from 95% to 0% with CINDY 3 flow. I then directed the balloon to the more lateral branch, focal stenosis of 80%, inflated 10 atmospheres for 20 seconds, the stenosis from 80% to 0% with CINDY-3 flow. CONCLUSION: 1. Xig-DI-gocntucwi myocardial infarction, culprit 95% sequential and in-stent stenoses of the obtuse marginal vessel as detailed above. 2. Otherwise, moderate to severe 3-vessel coronary artery disease in a right dominant system. 3. Normal left ventricular systolic function with ejection fraction 65%. 4. Successful percutaneous coronary intervention PTCA of the sequential 95 and 90% in-stent stenosis of the first obtuse marginal vessel as detailed above. 5. Normal left ventricular systolic function with ejection fraction 60%. 6. Recommend aspirin 162 mg daily, Plavix 600 mg p.o., 75 mg a day for 12-15 months per protocol. 7. If the patient has persistent symptoms, we will need to get a CT surgery consult to consider risks and benefits of coronary artery bypass graft. 8. I strongly advised the patient to stop smoking. 9. He will continue Lipitor and treat with beta blockers and ISIAH inhibitors as clinically and hemodynamically tolerated. MD KEITH Bland/opal/adrien , 02:22 PM , 02:34 PM
[2018-08-15 04:22] LABS: Baso % (Auto) 0.4 % (0.0-2.0); Eos # (Auto) 0.1 th/mm3 (0.0-0.4); Eos % (Auto) 2.5 % (0.0-4.0); Hematocrit 40.4 % (39.0-51.0); Hemoglobin 13.5 gm/dL (13.0-17.0); Lymph # (Auto) 0.7 th/mm3 (1.0-4.8); Lymph % (Auto) 13.9 % (9.0-44.0); Mean Corpuscular HGB Conc 33.5 % (32.0-36.0); Mean Corpuscular Hemoglobin 31.9 pg (27.0-34.0); Mean Corpuscular Volume 95.1 fL (80.0-100.0); Mean Platelet Volume 7.3 fL (7.0-11.0); Mono # (Auto) 0.4 th/mm3 (0.0-0.9); Neut # (Auto) 3.8 th/mm3 (1.8-7.7); Neut % (Auto) 75.2 % (16.0-70.0); Platelet Count 256 th/mm3 (150-450); Red Blood Count 4.25 mil/mm3 (4.50-5.90); Red Cell Distribution Width 13.4 % (11.6-17.2)
[2018-08-15] MEDS: Sod Chloride 0.9% Inj 1,000 ML IV.CONT SCH (04:22)
[2018-08-15 04:53] LABS: Anion Gap 6 meq/L (5-15); Blood Urea Nitrogen 9 mg/dL (7-18); Calcium 7.7 mg/dL (8.5-10.1); Chloride 109 meq/L (98-107); Glomerular Filtration Rate Greater Than 89 mL/min (>89); Glucose,Random 85 mg/dL (74-106); Potassium 4.3 meq/L (3.5-5.1); Sodium 142 meq/L (136-145)
[2018-08-15 04:55] LABS: Creatine Kinase 232 U/L (39-308)
[2018-08-15 08:16] VITALS: O2SAT 94
[2018-08-15] MEDS: Aspirin 325 MG Tablet PO SCH (08:32)
[2018-08-15] MEDS: Folic Acid 1 MG Tablet PO SCH (08:34)
--- NOTE | 2018-08-15 08:42 | ECG ---
Date Performed: 08/15/2018 Time Performed: 05:25:24 PTAGE: 73 years EKG: Sinus rhythm . Rightward axis Right bundle branch block Inferior T wave changes are nonspecific Low QRS voltages i n limb leads Abnormal ECG No significant change from prior electrocardiogram. PREVIOUS TRACING : 08/14/2018 10.46 DOCTOR: Gómez Owen Interpretating Date/Time 08/15/2018 08:40:54
--- NOTE | 2018-08-15 09:03 | P.PNIM ---
Subjective Interval history: Patient is s/p cardiac cath with PCTA of OM1. patient has no chest pain this morning. Physical Exam Vital signs: Vital Signs 08/14/18 09:47 08/14/18 11:45 08/14/18 12:15 Temperature 98.4 F Pulse Rate 94 H 63 Respiratory Rate 18 20 20 Blood Pressure 128/69 138/75 Pulse Oximetry 97 96 08/14/18 15:00 08/14/18 19:25 08/14/18 19:45 Temperature 97.9 F 98.1 F Pulse Rate 56 L 82 92 H Respiratory Rate 18 18 Blood Pressure 126/74 148/80 H Pulse Oximetry 96 92 L 08/14/18 20:11 08/14/18 23:00 08/14/18 23:55 Temperature 97.9 F Pulse Rate 92 H 81 Respiratory Rate 20 Blood Pressure 110/69 Pulse Oximetry 93 L 95 08/15/18 00:00 08/15/18 03:00 08/15/18 03:45 Temperature Pulse Rate 69 Respiratory Rate Blood Pressure Pulse Oximetry 97 94 L 08/15/18 04:00 08/15/18 07:00 08/15/18 08:00 Temperature 98.5 F 98.3 F Pulse Rate 71 75 Respiratory Rate 20 18 Blood Pressure 118/63 121/66 Pulse Oximetry 93 L 92 L 94 L Intake & Output 08/14/18 08/15/18 08/15/18 18:59 06:59 18:59 Intake Total 1172 / 1172 1480 / 1480 Output Total 510 / 510 425 / 425 Balance 662 / 662 1055 / 1055 Weight 84 kg Intake: IV 822 / 822 1000 / 1000 NS Inj 1,000 ML @ 84 mls/hr IV. 822 / 822 1000 / 1000 CONT .[id number] JOSI Rx#: [id number] Oral 350 / 350 480 / 480 Output: Urine 510 / 510 425 / 425 Other: # Bowel Movements 0 0 Narrative: GENERAL:elderly man, seated in chair, not in distress. CARDIOVASCULAR: Regular rate and rhythm,s1s2 normal. RESPIRATORY: Clear to auscultation. Breath sounds equal bilaterally. No wheezes , rales, or rhonchi. GASTROINTESTINAL: Abdomen soft, non-tender, nondistended. Normal active bowel sounds MUSCULOSKELETAL: Extremities without clubbing, cyanosis, or edema. NEURO: Alert & Oriented x4 to person, place, time, situation. Moves all ext x4 Results Labs CBC & Chem 7: 08/15/18 04:06 08/15/18 04:06 Assessment and Plan Plan 73 yo M with h/o CAD s/p stents, admitted with NSTEMI, now s/p PTCA of OM1. Patient has no chest pain this morning. -cont ASA 162mg, Plavix 75mg(for 12-15 months),Lipitor, B torrey and ISIAH-I. patient counseled to quit smoking, he says he will try, asking if 1 cigarette/ day is fine, informed he has to totally quit. 1:40pm Patient was seen by dog obedience instructor this am, nurse paged me and informed me patient is cleared for discharge. Progress Note: Quality VTE Deep Vein Thrombosis/Pulmonary Embolism Present on Admission: No
[2018-08-15 11:31] VITALS: PULSE 69
[2018-08-15 11:38] VITALS: BP 139/77; RESP 21; TEMP 98.5
--- NOTE | 2018-08-15 11:59 | P.PNCA ---
Subjective Interval history: assymptomatic, states he feels much better Medications and Allergies Active Medications: Active Medications Aspirin (Aspirin) 325 mg PO DAILY [facility] Last Admin: 08/15/18 08:32 Dose: 325 mg Atorvastatin Calcium (Lipitor) 20 mg PO DAILY [facility] Last Admin: 08/15/18 08:32 Dose: 20 mg Carvedilol (Coreg) 3.125 mg PO BID [facility] Last Admin: 08/15/18 08:33 Dose: 3.125 mg Clopidogrel Bisulfate (Plavix) 75 mg PO DAILY [facility] Last Admin: 08/15/18 08:33 Dose: 75 mg Flumazenil (Romazicon Inj) 0.2 mg IV.PUSH Q1M PRN PRN Reason: OVERSEDATION Folic Acid (Folic Acid) 1 mg PO DAILY [facility] Last Admin: 08/15/18 08:34 Dose: 1 mg Haloperidol Lactate (Haldol Inj) 1 mg IV.PUSH Q15M PRN PRN Reason: for severe agitation Heparin Sodium (Porcine) (Heparin Inj) 2,500 units IV.PUSH UNSCH PRN PRN Reason: aPTT 25-39 Heparin Sodium (Porcine) (Heparin Inj) 5,000 units IV.PUSH UNSCH PRN PRN Reason: aPTT < 25 Sodium Chloride (Ns Inj) 1,000 mls @ 84 mls/hr IV.CONT .[id number] [facility] Last Admin: 08/15/18 04:22 Dose: 84 mls/hr Heparin Sodium/Dextrose (Heparin/D5w 25,000 U/250 Ml) 25,000 unit in 250 mls @ 10 mls/hr IV.CONT TITRATE PRN; Protocol PRN Reason: Per Protocol Last Admin: 08/14/18 08:04 Dose: 1,000 units/hr, 10 mls/hr Tirofiban/Sodium Chloride (Aggrastat Inj) 12,500 mcg in 250 mls @ 0 mls/hr IV.CONT .Q0M [facility]; Protocol Last Admin: 08/15/18 04:19 Dose: 0.15 mcg/kg/min, 14.71 mls/hr Lorazepam (Ativan Inj) 1 mg IV.PUSH Q4H PRN PRN Reason: for CIWA 8-10 Lorazepam (Ativan Inj) 2 mg IV.PUSH Q15M PRN PRN Reason: for CIWA > 20 Lorazepam (Ativan Inj) 2 mg IV.PUSH Q1H PRN PRN Reason: for CIWA 15-20 Lorazepam (Ativan Inj) 2 mg IV.PUSH Q2H PRN PRN Reason: for CIWA 11-14 Lorazepam (Ativan) 1 mg PO Q4H PRN PRN Reason: for CIWA 8-10 Lorazepam (Ativan) 2 mg PO Q2H PRN PRN Reason: for CIWA 11-14 Nitroglycerin (Nitrostat Sl) 0.4 mg SL Q5M PRN PRN Reason: CHEST PAIN Nitroglycerin (Nitro-Bid 2% Oint) 0.5 inch TOPICAL Q6HR [facility] Last Admin: 08/15/18 11:41 Dose: Not Given Sodium Chloride (Ns Flush) 2 ml IV.FLUSH UNSCH PRN PRN Reason: FLUSH AFTER USING IV ACCESS Sodium Chloride (Ns Flush) 2 ml IV.FLUSH BID [facility] Last Admin: 08/15/18 08:34 Dose: 2 ml Sodium Chloride (Ns Flush) 2 ml IV.FLUSH BID [facility] Last Admin: 08/15/18 08:34 Dose: 2 ml Sodium Chloride (Ns Flush) 2 ml IV.FLUSH PRN PRN PRN Reason: FLUSH AFTER USING IV ACCESS Thiamine HCl (Vitamin B1) 100 mg PO DAILY [facility] Last Admin: 08/15/18 08:32 Dose: 100 mg Allergies Allergy/AdvReac Type Severity Reaction Status Date / Time steroids Allergy Tingling Uncoded 08/13/18 22:18 Home Medications Medication Instructions Recorded Confirmed Type clindamycin HCl PO BID 08/14/18 History docusate sodium BID 08/14/18 History ezetimibe PO DAILY 08/14/18 History losartan 100 mg PO DAILY 08/14/18 08/14/18 History metoprolol tartrate PO BID 08/14/18 History mirtazapine HS 08/14/18 History omeprazole PO DAILY 08/14/18 History Physical Exam Vital signs: Vital Signs 08/14/18 12:15 08/14/18 15:00 08/14/18 19:25 Temperature 98.4 F 97.9 F Pulse Rate 63 56 L 82 Respiratory Rate 20 18 Blood Pressure 138/75 126/74 Pulse Oximetry 96 96 08/14/18 19:45 08/14/18 20:11 08/14/18 23:00 Temperature 98.1 F 97.9 F Pulse Rate 92 H 92 H Respiratory Rate 18 20 Blood Pressure 148/80 H 110/69 Pulse Oximetry 92 L 93 L 95 08/14/18 23:55 08/15/18 00:00 08/15/18 03:00 Temperature Pulse Rate 81 Respiratory Rate Blood Pressure Pulse Oximetry 97 94 L 08/15/18 03:45 08/15/18 04:00 08/15/18 07:00 Temperature 98.5 F 98.3 F Pulse Rate 69 71 75 Respiratory Rate 20 18 Blood Pressure 118/63 121/66 Pulse Oximetry 93 L 92 L 08/15/18 08:00 08/15/18 11:00 Temperature 98.5 F Pulse Rate 69 Respiratory Rate 21 Blood Pressure 139/77 Pulse Oximetry 94 L 94 L Intake & Output 08/14/18 08/15/18 08/15/18 18:59 06:59 18:59 Intake Total 1172 / 1172 1480 / 1480 Output Total 510 / 510 425 / 425 Balance 662 / 662 1055 / 1055 Weight 84 kg Intake: IV 822 / 822 1000 / 1000 NS Inj 1,000 ML @ 84 mls/hr IV. 822 / 822 1000 / 1000 CONT .[id number] [facility] Rx#: [id number] Oral 350 / 350 480 / 480 Output: Urine 510 / 510 425 / 425 Other: # Bowel Movements 0 0 - Constitutional no acute distress - Routine HEENT Exam Head: Present: normocephalic - Routine Neck Exam Present: supple - Routine Respiratory Exam Present: CTA bilaterally - Routine Cardiovascular Exam Present: S1, S2 - Routine Abdominal Exam Present: soft - Routine Extremities Exam Comments: no ania Results 08/15/18 04:06 08/15/18 04:06 Cardiac Enzymes 08/13/18 08/13/18 08/14/18 Range/Units 22:28 22:28 01:30 AST 25 (15-37) U/L CK-MB (CK-2) 1.5 (0.5-3.6) ng/mL Troponin I Less than 0.02 L 0.23 H (0.02-0.05) ng/mL B-Natriuretic Peptide 34 (0-100) pg/mL 08/14/18 08/14/18 08/14/18 Range/Units 04:25 06:53 10:30 AST (15-37) U/L CK-MB (CK-2) 13.4 H (0.5-3.6) ng/mL Troponin I 0.72 H* 1.42 H* 3.81 H* (0.02-0.05) ng/mL B-Natriuretic Peptide (0-100) pg/mL Coagulation 08/13/18 08/13/18 08/14/18 Range/Units 22:28 22:28 06:53 PT 10.6 10.7 (9.8-11.6) sec APTT 29.1 29.1 (23.4-31.7) sec B-Natriuretic Peptide 34 (0-100) pg/mL Lipids 08/14/18 Range/Units 06:53 Triglycerides 65 (42-150) mg/dL Cholesterol 140 (120-200) mg/dL HDL Cholesterol 46.5 (40.0-60.0) mg/dL Cholesterol/HDL Ratio 3.01 Ratio CBC 08/13/18 08/15/18 Range/Units 22:28 04:06 WBC 8.1 5.0 (4.0-11.0) th/mm3 RBC 5.32 4.25 L (4.50-5.90) mil/mm3 Hgb 16.2 13.5 D (13.0-17.0) gm/dL Hct 50.1 40.4 (39.0-51.0) % Plt Count 322 256 (150-450) th/mm3 Neut # (Auto) 5.4 3.8 (1.8-7.7) th/mm3 Lymph # (Auto) 1.9 0.7 L (1.0-4.8) th/mm3 [place] # (Auto) 0.5 0.4 (0.0-0.9) th/mm3 Eos # (Auto) 0.2 0.1 (0.0-0.4) th/mm3 Baso # (Auto) 0.1 0.0 (0.0-0.2) th/mm3 Comprehensive Metabolic Panel 08/13/18 08/15/18 Range/Units 22:28 04:06 Sodium 137 142 (136-145) meq/L Potassium 4.0 4.3 (3.5-5.1) meq/L Chloride 101 109 H D (98-107) meq/L Carbon Dioxide 33.5 H 27.0 (21.0-32.0) meq/L BUN 9 9 (7-18) mg/dL Creatinine 1.10 0.81 (0.60-1.30) mg/dL Calcium 8.8 7.7 L D (8.5-10.1) mg/dL AST 25 (15-37) U/L ALT 24 (12-78) U/L Alkaline Phosphatase 141 H (45-117) U/L Total Protein 7.7 (6.4-8.2) g/dL Albumin 3.6 (3.4-5.0) g/dL Intake and Output 08/14/18 08/15/18 08/15/18 22:59 06:59 14:59 Intake Total 350 / 350 1480 / 1480 Output Total 510 / 510 425 / 425 Balance -160 / -160 1055 / 1055 Intake: IV 1000 / 1000 NS Inj 1,000 ML @ 84 mls/hr IV. 1000 / 1000 CONT .[id number] [facility] Rx#: [id number] Oral 350 / 350 480 / 480 Output: Urine 510 / 510 425 / 425 Other: # Bowel Movements 0 0 Weight 84 kg - Imaging and Cardiology Imaging: Impressions Chest X-Ray 08/13/18 22:21 CONCLUSION: Increased density at the right base likely related to consolidation or atelectasis. Assessment and Plan - Assessment (1) NSTEMI (non-ST elevated myocardial infarction) Code(s): I21.4 - Non-ST elevation (NSTEMI) myocardial infarction Status: Acute (2) CAD (coronary artery disease) Code(s): I25.10 - Atherosclerotic heart disease of [place] coronary artery without angina pectoris Status: Acute (3) Tobacco abuse Code(s): Z72.0 - Tobacco use Status: Acute (4) Tobacco abuse counseling Code(s): Z71.6 - Tobacco abuse counseling Status: Acute - Plan 1.) CAD - pod # 1 ptca isr om, assymptomatic, i explained to the patient that noncompliance with dapt would result in life threatening stent thrombosis, patient understands, nurse present at the bedside, continue aspirin 162 mg qd, plavix 75 mg qd, lipitor, coreg, add lisinopril
--- NOTE | 2018-08-15 13:45 | P.DS ---
DS: Providers Date of admission: 08/14/18 10:36 Primary care physician: [facility] Consults: 08/14/18 06:24 Consult to Cardiology Routine Consulting Provider: Job Carolina Does the patient have a Supervisor [employer] who follows them?: No Preferred Burr Sander:: Counter Sales Person Physician Reason for Consultation: NSTEMI Notified:: Service Spoke with:: YARELIS Date Notified:: 08/14/18 Time Notified:: 07:27 Comments:: spoke to Dr Carolina 0814 [facility] - Ordering Provider: ARCADIO Brief History from admission: 73-year-old male with known history of hypertension, history of myocardial infarction, coronary artery disease, TIA who presented to the hospital for acute onset of right jaw and right arm pain. Patient states that he was in his normal state of health while he was at a bar last night having a beer when he got a sudden onset of pain in his jaw and right arm at approximately 8 PM last night. Patient states that it hurt real bad but he could not quantify the pain. The pain was persistent until he was brought to the hospital. His son brought him to the hospital for evaluation. Patient was given aspirin, nitroglycerin, Protonix in emergency department with resolution of his pain. Patient denied any nausea, vomiting, shortness of breath, dyspnea, chest pain. Patient had workup done in emergency department and was made to the hospital for evaluation chest pain. During evaluation patient had acute troponin elevation without any ST elevations. Cardiology has been consulted. At the time of evaluating patient this morning he is asymptomatic. Patient does have history of coronary disease and has undergone cardiac catheterization with 1 stent placement. DS: Diagnosis Discharge Diagnosis (1) NSTEMI (non-ST elevated myocardial infarction): Status: Acute (2) CAD (coronary artery disease): Status: Acute (3) Tobacco abuse: Status: Acute (4) Tobacco abuse counseling: Status: Acute DS: Summary 73 yo M with h/o CAD s/p stent, admitted with NSTEMI on 08/14, underwent cardiac cath found to have 95% in-stent stenosis also just proximal to the stent in the proximal obtuse marginal vessel, followed by a focal 90% in-stent stenosis in the more lateral branch of the marginal vessel. He underwent PTCA. Patient remained chest pain free after the procedure. Patient has been counseled to quit smoking. The following medication have been recommended: ASA 162mg, Plavix 75mg(for 12- 15 months),Lipitor, Carvedilol and Lisinopril. Patient will set up an appointment with his PCP at the [facility] within 1 week. He will need a referral to the [employer] machine operator for follow up. Time Spent with Patient Total time spent providing and/or coordinating discharge services: Quality: VTE Deep Vein Thrombosis/Pulmonary Embolism Present on Admission: No Results Labs on day of discharge: Labs from last 24 hours 08/15/18 08/15/18 04:06 04:06 WBC 5.0 RBC 4.25 L Hgb 13.5 D Hct 40.4 MCV 95.1 MCH 31.9 MCHC 33.5 RDW 13.4 Plt Count 256 MPV 7.3 Neut % (Auto) 75.2 H Lymph % (Auto) 13.9 [place] % (Auto) 8.0 Eos % (Auto) 2.5 Baso % (Auto) 0.4 Neut # (Auto) 3.8 Lymph # (Auto) 0.7 L [place] # (Auto) 0.4 Eos # (Auto) 0.1 Baso # (Auto) 0.0 WBC Differential . Differential Comment Auto diff final Sodium 142 Potassium 4.3 Chloride 109 H D Carbon Dioxide 27.0 Anion Gap 6 BUN 9 Creatinine 0.81 Estimated GFR Greater than 89 Random Glucose 85 Calcium 7.7 L D Total Creatine Kinase 232 Impressions ITS Impressions Chest X-Ray 08/13/18 22:21 CONCLUSION: Increased density at the right base likely related to consolidation or atelectasis. Discharge Plan Discharge Disposition Patient Disposition: Discharge Home Discharge Condition Condition: Stable Discharge Order Discharge Orders: Discharge Order (Routine); Ordered 08/15/18 Ordered By: Arthur Hall Discharge Details Anticipated Discharge Date: 08/15/18 Physicians Team Primary Care Provider: [facility] Attending Provider: Arthur Hall Other Providers: Job Carolina Rxs /Orders / Referrals /Forms Prescriptions: New atorvastatin 20 mg Tablet 20 mg PO DAILY Qty: 30 RF: 0 clopidogrel [Plavix] 75 mg Tablet 75 mg PO DAILY Qty: 30 RF: 0 carvedilol [Coreg] 3.125 mg Tablet 3.125 mg PO BID Qty: 60 RF: 0 lisinopril 5 mg Tablet 2.5 mg PO DAILY Qty: 30 RF: 0 aspirin 162.5 mg capsule,extended release 24hr 162.5 mg PO DAILY Qty: 30 RF: 0 Continue docusate sodium BID RF: 0 ezetimibe 10 mg PO DAILY RF: 0 mirtazapine 30 mg HS RF: 0 omeprazole 20 mg PO DAILY RF: 0 Discontinued losartan 100 mg Tablet 100 mg PO DAILY RF: 0 clindamycin HCl 300 mg PO BID RF: 0 metoprolol tartrate 50 mg PO BID RF: 0 Referrals: [facility] [Other] - See Instructions [facility] [Primary Care Provider] - See Instructions Discharge Instructions Patient Printed Instructions: Chest Pain (ED) Discharge Interventions Interventions: Discharge Planning - Case Management Last Done: 08/14/18 10:24 Status ED Status: Left Department
[2018-08-16] MEDS ORDERED: Lisinopril 5 MG Tablet PO SCH (09:00)
== END 2018-08-15 14:55 | disposition home or self-care (01) | DRG 251 ==
LOC: PHEDA 22:03 → PHED 22:03 → PH3 08-14 00:54 → HCVI 08-14 12:11
PROVIDERS: ADMIT Hospitalist; ATTEND Hospitalist
DX: I25.10 Atherosclerotic heart disease of native coronary artery without angina pectoris; I45.10 Unspecified right bundle-branch block; F17.210 Nicotine dependence, cigarettes, uncomplicated; Z86.73 Personal history of transient ischemic attack (TIA), and cerebral infarction without residual deficits; I25.2 Old myocardial infarction; R54 Age-related physical debility; I21.4 Non-ST elevation (NSTEMI) myocardial infarction; I10 Essential (primary) hypertension; T82.855A Stenosis of coronary artery stent, initial encounter; Z85.828 Personal history of other malignant neoplasm of skin; Z79.82 Long term (current) use of aspirin; Z82.49 Family history of ischemic heart disease and other diseases of the circulatory system
CPT/HCPCS: 71010; 71045; 80048; 80053; 80061; 82550; 82552; 83520; 83735; 83880; 84484; 85002; 85025; 85610; 85730; 90774; 92920; 93005; 93458; 94664; 96374; 99152; 99153; 99285; C1725; C1769; C1887; C1893; C8952; C9113; J0696; J1644; J2250; J3010; J3246; J7030; Q9967